=== PATIENT | female | born 1945 | race Caucasian/White ===

== ENCOUNTER 2021-06-08 13:16 | Emergency (ER) | payer MEDICARE, SELFPAY ==
[2021-06-08 13:35] VITALS: BP 91/48; PULSE 84; RESP 18; TEMP 37.4; O2SAT 93
[2021-06-08] MEDS: SODIUM CHLORIDE 0.9% IV 1,000 ML 500 ML IV CONT (14:11)
[2021-06-08] MEDS: ONDANSETRON HCL ODT 4 MG TABLET PO (14:11)
--- NOTE | 2021-06-08 14:18 | ED.NAVMDI ---
HPI - Nausea/Vomiting/Diarrhea General Chief complaint: Nausea/Vomiting/Diarrhea Stated complaint: diarrhea,vomiting Time Seen by Provider: 06/08/21 14:19 History of Present Illness HPI Narrative: Patient presents with a 2-day history of nausea vomiting and diarrhea. Patient denies any fever no cough no shortness of breath no chest pain. Patient denies any abdominal pain. MD elicited complaint: nausea, vomiting and diarrhea Related Data Home Medications Medication Instructions Recorded Confirmed budesonide-formoterol [Symbicort] 2 puff INHALATION DAILY 06/08/21 06/08/21 carvedilol 6.25 mg PO BID 06/08/21 06/08/21 escitalopram oxalate 10 mg PO DAILY 06/08/21 06/08/21 gabapentin 300 mg PO HS 06/08/21 06/08/21 hydroxychloroquine 200 mg PO Q48H 06/08/21 06/08/21 irbesartan 150 mg PO DAILY 06/08/21 06/08/21 pravastatin 40 mg PO DAILY 06/08/21 06/08/21 Allergies Allergy/AdvReac Type Severity Reaction Status Date / Time Contrast Media Allergy Unknown Hives / Uncoded 06/08/21 13:57 Red Face Review of Systems Review of Systems: CONSTITUTIONAL: Denies fever, chills, or sweats. EYES: Denies visual changes, redness, or discharge. ENT: Denies rhinorrhea, congestion, sore throat, or otalgia. CARDIOVASCULAR: Denies chest pain, palpitations, or edema. RESPIRATORY: Denies cough or dyspnea. GASTROINTESTINAL: Denies abdominal pain, nausea, vomiting, or diarrhea. GENITOURINARY: Denies dysuria or hematuria. SKIN: Denies rash or itching. MUSCULOSKELETAL: Denies back pain, joint pain, or myalgia. NEUROLOGIC: Denies headache, numbness, or weakness. PSYCHIATRIC: Denies anxiety or depression. PMF Comments At time of signature, agree with nursing past medical, surgical, social and family history. There is no relevant family history pertinent to the presenting complaint Exam Narrative: GENERAL: Well-appearing, well-nourished, and in no acute distress. HEAD: Normocephalic, atraumatic. EYES: PERRLA and EOMI. ENT: Nares clear, no rhinorrhea or epistaxis. Mucous membranes moist. NECK: Supple. CHEST: Clear to auscultation. No respiratory distress. HEART: Regular rate and rhythm. No murmur heard. Normal peripheral pulses. ABDOMEN: Soft, nontender, nondistended, normal active bowel sounds. EXTREMITIES: Normal range of motion. No edema. SKIN: Warm, dry, no rash. NEURO: No focal deficits. Alert and oriented x3. Katie Coma Scale Eye Opening: Spontaneous 4 [place] Coma Scale Motor: Obeys Commands 6 [place] Coma Scale Verbal: Oriented 5 Katie Coma Scale Total 15 Course Course Level of Care: Express Care Visit Vital Signs Vital signs: Vital Signs Temperature 37.4 C 06/08/21 13:35 Pulse Rate 84 06/08/21 13:35 Respiratory Rate 18 06/08/21 13:35 Blood Pressure 91/48 L 06/08/21 13:35 Pulse Oximetry 93 06/08/21 13:35 Temperature 37.4 C 06/08/21 13:35 Pulse Rate 84 06/08/21 13:35 Respiratory Rate 18 06/08/21 13:35 Blood Pressure 91/48 L 06/08/21 13:35 Pulse Oximetry 93 06/08/21 13:35 Discussed with patient need to transfer to emergency room for further evaluation treatment possible lab work and fluids. Patient declines transfer states she does not wish to go to the ER at this time. Discussed we will give Zofran here in [facility] and a p.o. challenge. Discussed with patient we will also give 500 mL of normal saline. Discussed red flags and when to go to ER. Instructed patient she must follow-up with primary care provider in the next 1 to 2 days and if any new or worsening symptoms she must go to ER for further evaluation treatment P.o. challenge tolerated well after Zofran. Patient tolerated iv fluids well. lungs clear no edema. no vomiting and no diarrhea this express care visit. patient tolerated second 500 ml for total of one liter on 1.5 hours. drinking water no nausea and no diarhea this visit. bp 107/64 pulse ox 96 room air resp 18 pulse 88 patient tolerated fluids well. lungs clear no
--- NOTE | 2021-07-10 11:10 | PC.NURSE ---
LATE ENTRY This note is being entered to document information to the patient's record. The following information was omitted on [06/08/21], by [Ruba Bajwa]. pt IV fluids were discontiued at 1520 on 06/08/21 with 500ml infused.
== END 2021-06-08 15:30 | disposition home or self-care (01) ==
PROVIDERS: Emergency Provider Nurse Practitioner Family; PCP Internal Medicine
DX: R11.2 Nausea with vomiting, unspecified (principal); R19.7 Diarrhea, unspecified; E78.00 Pure hypercholesterolemia, unspecified; I10 Essential (primary) hypertension; H26.9 Unspecified cataract
CPT/HCPCS: 96360; 99213; A9270; G0463; J7030